=== PATIENT | female | born 1950 | race Caucasian/White ===

== ENCOUNTER → 2023-09-08 14:46 | Outpatient (REF) | payer MEDICARE, SELFPAY | LOC: RAD 14:46 | PROVIDERS: ATTENDING PHYSICIAN Physician Assistant | DX: M79.645 Pain in left finger(s) (principal); M79.644 Pain in right finger(s) | CPT/HCPCS: 73130 ==

== ENCOUNTER 2024-02-20 16:36 | Emergency (ER) | payer MEDICARE, SELFPAY ==
[2024-02-20 16:45] VITALS: BP 189/99
--- NOTE | 2024-02-20 18:12 | ED.GENMED ---
History of Present Illness
General
Chief Complaint: Musculo-Skeletal Complaint
Source: patient
Exam Limitations: none
Time Seen by Provider: 02/20/24 17:57
History of Present Illness
History of Present Illness:
This is a 73 year old female that comes in with c/o neck pain. States that she awoke this morning with pain. States that it is more on the left side. Patient also went to see the PCP today for a physical. States that when she got home the discomfort
got worse and worse. Denies any falls or injury. States that she took Ibuprofen 3 tablets twice today and she felt it was not helping. States that she has discomfort turning her head more to the right side. Denies any fever, chills, chest pain, SOB,
abd pain, nausea, vomiting, diarrhea, headache, dizziness, urinary burning.
Past History
Past History
ED Past Medical History: Cancer (Skin Cancer Basal Cell), GERD, HTN, Hypercholesterolemia, Psychiatric (Anxiety, Depression, ) and Other (BRIAN, kidney stones, OA, Vertigo, Sleep apnea uses CPAP, Common bile duct stent)
ED Past Surgical History: Cholecystectomy (On 02/19/21), Gynecological (Tubal, ) and Orthopedic (Bilateral knee replacements. )
Social History
Tobacco: Former smoker
Alcohol: Occasional
Personal:
Living: alone
Review of Systems
Review of Systems
All Other Systems: ROS reviewed and negative except as documented in HPI and ROS
Constitutional: Reports no symptoms; Denies fever or chills
EENT: Reports no symptoms
Respiratory: Reports no symptoms; Denies cough or trouble breathing
Cardiac: Reports no symptoms; Denies chest pain
ABD/GI: Reports no symptoms; Denies abdominal pain, nausea, vomiting or diarrhea
: Reports no symptoms; Denies dysuria, frequency or urgency
Musculoskeletal: Reports neck pain
Skin: Reports no symptoms
Neurological: Reports no symptoms; Denies dizzy or headache
Psychiatric: Reports no symptoms
Phy Exam
General Physical Exam
General Presentation: no apparent distress
General age: appears stated age
General Skin: warm and dry
General Habitus: elderly
General Mental: alert
General Hydration: appears well hydrated
ENT Exam
ENT Exam: TM's normal and pharynx normal
Eye Exam
Eye Exam: EOMI
Cardiovascular Exam
Cardiovascular Exam: regular rate/rhythm and no murmur
Pulmonary Exam
Pulmonary Exam: lungs clear, no respiratory distress, no rales, chest non tender, no crackles, no rhonchi, no wheezing and no cough
Musculoskeletal Exam
Musculoskeletal Exam: full ROM and neck pain (Tenderness to palpation on the left lateral neck over the Trapezius muscle. Patient can turn her head slightly to both sided and touch chin to chest)
Skin Exam
Skin Exam: normal color, warm/dry, no rash and no petechia
Psychiatric Exam
Psychiatric Exam: normal mood/affect
Course
Orders/Labs/Results
Orders:
Orders
02/20/24 18:11
Acetaminophen [Tylenol] 1,000 mg PO NOW STA
Cyclobenzaprine HCl [Flexeril] 10 mg PO NOW STA
Vital Signs
Initial and Last Documented VS:
Initial Vital Signs
Temp Pulse Resp BP Pulse Ox
97.9 F 81 18 189/99 97
02/20/24 16:45 02/20/24 16:45 02/20/24 16:45 02/20/24 16:45 02/20/24 16:45
Last Documented Vital Signs
Temp Pulse Resp BP Pulse Ox
97.9 F 81 18 189/99 97
02/20/24 16:45 02/20/24 16:45 02/20/24 16:45 02/20/24 16:45 02/20/24 16:45
MDM/Problems Addressed
Differential Diagnosis Includes:
Stiff neck
MDM/Problems Addressed:
This is a 73 year old female that comes in with c/o stiff neck which she awoke with this morning.
Explained to patient that she can use heat or ice to the neck. Will have patient use Ibuprofen 600mg every 6 hours for pain and add Tylenol 1000mg every 6 hours. Will also give patient a prescription for Flexeril to use at Bedtime to relax the
muscle. Offered patient a CT of the neck but patient is in agreement that this is not necessary. Patient to follow up with the family doctor. Return with any concerns.
Chronic conditions affecting care:
NA
Acute Exacerbation and/or Progression of Chronic Illness:
NA
*Pulse Oximetry
Patient hypoxic: no
*EKG
Interpreted by ED Provider?: NA
Rate: EKG- N/A
*Bander And Cellophaner Helper Machine Interpretation
Rate: Bander And Cellophaner Helper Machine- N/A
*Critical Care Note
Total Time (30-74mins, 75-104mins- exclusive of procedures): Not Applicable
ED Attending Note
-
Portions of this chart may have been created with voice recognition software.� Occasional wrong word or��sound alike� substitutions may have occurred due to the inherent limitations of voice recognition software.
Discharge Plan
Departure
Patient Disposition: Home (Routine Discharge)
Date of Disposition: 02/20/24
Time of Disposition: 18:28
Patient with high blood pressure during this ER visit?: Yes
Condition: Good
Covid-19: Not Applicable
Discharge Problem:
Acute muscle stiffness of neck
Instructions: Neck Pain ED, BLOOD PRESSURE
Prescriptions:
New
cyclobenzaprine 5 mg tablet
5 mg PO HS PRN (Reason: Muscle relaxer) Qty: 5 0RF
No Action
simvastatin 40 MG tablet
40 mg PO Q48H
Patient Comments:
02/22/21 PT TAKES AT HS.
acetaminophen 325 MG tablet
650 mg PO Q4HPRN PRN (Reason: mild pain) Qty: 1 0RF
lisinopril 20 MG tablet
40 mg PO DAILY
aspirin 81 MG tablet,delayed release (DR/EC)
81 mg PO Q48H
ropinirole 0.25 MG tablet
0.25 mg PO HSPRN PRN (Reason: LEG CRAMPS)
ibuprofen 200 MG tablet
400 mg PO Q4HPRN PRN (Reason: MILD PAIN)
Patient Comments:
02/22/21 PT ALTERNATES WITH APAP.
zolpidem 10 MG tablet
10 mg PO HSPRN PRN (Reason: SLEEP)
fluoxetine 20 MG capsule
40 mg PO DAILY
cholecalciferol (vitamin D3) 2,000 UNITS tablet
2,000 units PO DAILY
amlodipine 10 MG tablet
10 mg PO DAILY
omeprazole 20 MG tablet,delayed release (DR/EC)
20 mg PO DAILY
Patient Comments:
delayed release
Activity Restrictions/Additional Instructions:
As discussed, this is most likely a stiff neck as there has not been any trauma. Please use heat or ice to the neck which ever make you feel better. You may use Tylenol 1000mg every 6 hours for pain and Ibuprofen 600mg every 6 hours with food and
alternate them. So if you take Tylenol at 9am you can take the Ibuprofen at 12noon and the Tylenol will then be due at 3pm and Ibuprofen at 6pm. You have had a prescription sent to your pharmacy to help with muscle relaxation. Please take this at
bedtime as this can make you tired. No alcohol or driving when taking. Follow up with the family doctor for recheck. IF YOU HAVE INCREASED OR CHANGING PAIN, OR YOU HAVE ANY OTHER CONCERNS PLEASE RETURN TO THE EMERGENCY ROOM.
Discharge Date and Time
Print Language: TANZANIAN
[2024-02-20] MEDS: TYLENOL 1000 MG PO (18:35)
[2024-02-20] MEDS: FLEXERIL 10 MG PO (18:36)
== END 2024-02-20 18:41 | disposition home or self-care (01) ==
LOC: EMR 16:36
PROVIDERS: EMERGENCY PHYSICIAN Student in an Organized Health Care Education/Training Program; FAMILY PHYSICIAN Student in an Organized Health Care Education/Training Program
DX: M54.2 Cervicalgia (principal); M43.6 Torticollis; I10 Essential (primary) hypertension; K21.9 Gastro-esophageal reflux disease without esophagitis; F41.9 Anxiety disorder, unspecified; F32.A Depression, unspecified; E78.00 Pure hypercholesterolemia, unspecified; G47.33 Obstructive sleep apnea (adult) (pediatric); M19.90 Unspecified osteoarthritis, unspecified site; Z96.653 Presence of artificial knee joint, bilateral; Z79.82 Long term (current) use of aspirin; Z85.828 Personal history of other malignant neoplasm of skin; Z87.442 Personal history of urinary calculi; Z87.891 Personal history of nicotine dependence; Z90.49 Acquired absence of other specified parts of digestive tract
CPT/HCPCS: 99283

== ENCOUNTER → 2024-02-25 09:11 | Outpatient (REF) | payer MEDICARE, SELFPAY ==
[2024-02-25 10:13] LABS: % Basophils 0.5 % (0-2); % Eosinophils 5.1 % (0-6); % Immature Granulocytes 0.2 % (0-0.5); % Lymphocytes 42.8 % (20.5-51.1); % Monocytes 7.4 % (1.7-9.3); Absolute Eosinophils 0.3 10^3/uL (0-0.7); Absolute Lymphocytes 2.4 10^3/uL (1.2-3.4); Absolute Monocytes 0.4 10^3/uL (0.1-0.6); Absolute Neutrophils 2.5 10^3/uL (1.4-6.5); Hematocrit 42.8 % (37.0-47.0); Hemoglobin 14.4 g/dL (12.0-16.0); Mean Corp Hgb Conc. 33.6 g/dL (33.0-37.0); Mean Corpuscular Hgb 30.5 pg (27.0-31.0); Mean Corpuscular Volume 90.7 fL (81.0-99.0); Mean Platelet Volume 10.5 fL (7.4-10.4); Nucleated Red Blood Cells % 0 %; Platelet Count 228 10^3/uL (130-400); Red Blood Cell Count 4.72 10^6/uL (4.20-5.40); Red Cell Dist. Width 11.9 % (11.5-14.5); White Blood Cell Count 5.7 10^3/uL (4.8-10.8)
[2024-02-25 10:43] LABS: ALT (SGPT) 28 U/L (0-35); AST (SGOT) 33 U/L (14-36); Albumin 4.5 g/dl (3.5-5.0); Alkaline Phosphatase 54 U/L (38-126); Blood Urea Nitrogen 19 mg/dl (7-17); Calcium 9.8 mg/dl (8.4-10.2); Carbon Dioxide 28 mmol/L (22-30); Chloride 103 mmol/L (98-107); Glucose 93 mg/dl (70-99); HDL Cholesterol 51 mg/dl; LDL Cholesterol, Calculated 106 mg/dl; Potassium 4.8 mmol/L (3.5-5.1); Sodium 146 mmol/L (135-145); Total Bilirubin 0.3 mg/dl (0.2-1.3); Total Cholesterol 203 mg/dl (50-199); Total Protein 7.3 g/dl (6.3-8.2); Triglyceride 234 mg/dl (10-149); Very Low Density Lipoprotein 46 mg/dl (0-30); eGFR > 60.00
[2024-02-25 11:12] LABS: TSH 1.09 uIU/ml (0.47-4.68)
== END ==
LOC: REG 09:11
PROVIDERS: ATTENDING PHYSICIAN Internal Medicine; FAMILY PHYSICIAN Student in an Organized Health Care Education/Training Program
DX: I10 Essential (primary) hypertension (principal); E78.5 Hyperlipidemia, unspecified
CPT/HCPCS: 36415; 80053; 80061; 84443; 85025

== ENCOUNTER → 2024-03-26 14:33 | Outpatient (REF) | payer MEDICARE, SELFPAY | LOC: WDC 14:33 | PROVIDERS: ATTENDING PHYSICIAN Internal Medicine | DX: Z12.31 Encounter for screening mammogram for malignant neoplasm of breast (principal) | CPT/HCPCS: 77063; 77067 ==

== ENCOUNTER 2024-04-23 15:03 | Outpatient (RCR) | payer MEDICARE, SELFPAY | END 2024-04-23 23:59 | disposition home or self-care (01) | LOC: RPT 15:03 | PROVIDERS: ATTENDING PHYSICIAN Student in an Organized Health Care Education/Training Program | DX: M54.2 Cervicalgia (principal); Z73.6 Limitation of activities due to disability | CPT/HCPCS: 97010; 97110; 97112; 97140; 97162 ==

== ENCOUNTER 2024-04-29 16:31 | Outpatient (RCR) | payer MEDICARE, SELFPAY | END 2024-04-29 23:59 | disposition home or self-care (01) | LOC: RPT 16:31 | PROVIDERS: ATTENDING PHYSICIAN Student in an Organized Health Care Education/Training Program | DX: M54.2 Cervicalgia (principal); Z73.6 Limitation of activities due to disability | CPT/HCPCS: 97010; 97110; 97112; 97140 ==

== ENCOUNTER → 2024-05-16 12:51 | Outpatient (REF) | payer MEDICARE, SELFPAY | LOC: MRI 3T 12:51 | PROVIDERS: ATTENDING PHYSICIAN Student in an Organized Health Care Education/Training Program | DX: M54.2 Cervicalgia (principal) | CPT/HCPCS: 72141 ==

== ENCOUNTER → 2024-12-09 12:20 | Outpatient (REF) | payer MEDICARE, SELFPAY ==
[2024-12-09 14:09] LABS: Hematocrit 44.1 % (37.0-47.0); Hemoglobin 14.6 g/dL (12.0-16.0); Mean Corp Hgb Conc. 33.1 g/dL (33.0-37.0); Mean Corpuscular Volume 94.6 fL (81.0-99.0); Nucleated Red Blood Cells % 0 %; Platelet Count 188 10^3/uL (130-400); Red Cell Dist. Width 11.9 % (11.5-14.5)
[2024-12-09 14:33] LABS: ALT (SGPT) 27 U/L (0-35); AST (SGOT) 29 U/L (14-36); Albumin 4.5 g/dl (3.5-5.0); Alkaline Phosphatase 53 U/L (38-126); Blood Urea Nitrogen 22 mg/dl (7-17); Calcium 9.9 mg/dl (8.4-10.2); Carbon Dioxide 29 mmol/L (22-30); Chloride 106 mmol/L (98-107); Glucose 91 mg/dl (70-99); Potassium 5.0 mmol/L (3.5-5.1); Sodium 142 mmol/L (135-145); Total Protein 7.2 g/dl (6.3-8.2); eGFR > 60.00
[2024-12-09 15:22] LABS: Vitamin B12 272 pg/ml (239-931)
== END ==
LOC: REG 12:20
PROVIDERS: ATTENDING PHYSICIAN Student in an Organized Health Care Education/Training Program
DX: R42 Dizziness and giddiness (principal); I95.1 Orthostatic hypotension; R26.81 Unsteadiness on feet
CPT/HCPCS: 36415; 80053; 82607; 84443; 85025

== ENCOUNTER → 2025-02-04 06:41 | Outpatient (REF) | payer MEDICARE, SELFPAY | LOC: PAVMRI 06:41 | PROVIDERS: ATTENDING PHYSICIAN Student in an Organized Health Care Education/Training Program; PRIMARYCARE PHYSICIAN Internal Medicine | DX: M54.2 Cervicalgia (principal); G54.2 Cervical root disorders, not elsewhere classified; R42 Dizziness and giddiness | CPT/HCPCS: 70551; 72141 ==